=== PATIENT | female | born 1970 | race Caucasian/White ===

== ENCOUNTER 2017-01-17 15:34 | Inpatient (IN) | payer MEDICAID ==
[~2017-01-17] VITALS: Ht 170.2 cm; Wt 63.0 kg
[~2017-01-17 15:34] MED LIST: BUPR100T13 PO; DIVA500T7 PO; IBUP-1480 PO; SER100 PO
[2017-01-17 15:37] VITALS: BP_SYST 112
[2017-01-17] MEDS ORDERED: NACL 0.9% 1,000 ML IV ONE (17:51)
[2017-01-17] MEDS ORDERED: FOLIC ACID 1 MG, THIAMINE HCL 100 MG, MAGNESIUM SULFATE 1 GM, MVI 10 ML in NACL 0.9% 1,... IV ONE (18:00)
[2017-01-17] MEDS ORDERED: ONDANSETRON HCL 4 MG/2 ML VIAL IVP ONE ×2 (18:00→20:15)
[2017-01-17] MEDS ORDERED: MAGNESIUM SULFATE 1 GM/2 ML VIAL ONE (18:11)
[2017-01-17] MEDS ORDERED: FOLIC ACID 5 MG/ML VIAL IV ONE (18:11)
[2017-01-17] MEDS ORDERED: THIAMINE HCL 100 MG/ML VIAL ONE (18:11)
[2017-01-17] MEDS ORDERED: MVI 10 ML VIAL IV ONE (18:11)
[2017-01-17 18:23] LABS: BASOPHILS # (AUTO) 0.1 K/uL (0.0-0.2); BASOPHILS % (AUTO) 1.1 % (0.0-2.0); EOSINOPHILS % (AUTO) 0.1 % (0.0-4.0); HEMATOCRIT 39.3 % (36-48); HEMOGLOBIN 12.9 g/dL (12.0-16.0); LYMPHOCYTES # (AUTO) 1.4 K/uL (1.0-5.5); LYMPHOCYTES % (AUTO) 11.2 % (20.5-51.5); MEAN CORPUSCULAR HEMOGLOBIN 29 pg (27-31); MEAN CORPUSCULAR HGB CONC 33 % (32-36); MEAN CORPUSCULAR VOLUME 90 fL (79.0-98.0); MONOCYTES # (AUTO) 0.7 K/uL (0.0-1.0); MONOCYTES % (AUTO) 5.3 % (1.7-9.3); NEUTROPHILS # (AUTO) 10.1 K/uL (1.8-7.7); NEUTROPHILS % (AUTO) 82.3 % (40.0-70.0); PLATELET COUNT (AUTO) 443 K/uL (130-430); RED BLOOD CELL COUNT(AUTO) 4.39 MIL/uL (4.2-6.2); RED CELL DISTRIBUTION WIDTH 16.2 % (9.0-15.0); WHITE BLOOD COUNT (AUTO) 12.3 K/uL (4.8-10.8)
[2017-01-17 18:43] LABS: INR 1.1 (0.8-1.2); PROTHROMBIN TIME 11.5 SECS (9.5-12.5)
[2017-01-17 18:48] LABS: ANION GAP 15 (5-15); CALCIUM 9.8 mg/dL (8.4-11.0); CHLORIDE 100 mmol/L (98-107); CREATININE 0.77 mg/dL (0.55-1.30); GFR AFRICAN AMERICAN 105 mL/min (>90); GLUCOSE 119 mg/dL (70-99); POTASSIUM 3.4 mmol/L (3.5-5.1); SODIUM SERUM 139 mmol/L (136-145); UREA NITROGEN, BLOOD 6 mg/dL (8-21)
[2017-01-17 18:54] LABS: ALANINE AMINOTRANSFERASE 30 U/L (12-78); ALBUMIN 4.5 g/dL (3.4-4.8); AMYLASE 57 U/L (0-100); ASPARTATE AMINOTRANSFERASE 52 U/L (10-37); LIPASE 65 U/L (73-393)
[2017-01-17 18:58] LABS: ALCOHOL, BLOOD < 3 mg/dL (<10)
[2017-01-17] MEDS ORDERED: KETOROLAC TROMETHAMINE 30 MG VIAL IVP ONE (19:15)
[2017-01-17] MEDS ORDERED: LORazepam 2 MG/ML VIAL IVP ONE (20:15)
[2017-01-17] MEDS ORDERED: LORazepam 2 MG/ML VIAL (FOR ER USE) ONE (20:29)
[2017-01-17] MEDS ORDERED: MORPHINE 2 MG/ML INJ. SYRINGE IVP ONE (20:30)
[2017-01-17] MEDS ORDERED: PANTOPRAZOLE SODIUM 40 MG/VIAL (PROTONIX) IVP ONE (21:00)
[2017-01-17] MEDS ORDERED: METOCLOPRAMIDE HCL 10 MG/2 ML VIAL IVP ONE (21:00)
[2017-01-17] MEDS ORDERED: PANTOPRAZOLE SODIUM 80 MG in NS 100 ML IV ONE (22:30)
[2017-01-17] MEDS ORDERED: PANTOPRAZOLE SODIUM 40 MG in NS 50 ML IV ONE (22:30)
[2017-01-17 23:17] VITALS: BP_SYST 128
[2017-01-17] MEDS ORDERED: PANTOPRAZOLE SODIUM 40 MG/VIAL (PROTONIX) ONE ×2 (23:54)
[2017-01-18 00:03] LABS: BILIRUBIN,URINE NEGATIVE (NEGATIVE); BLOOD, URINE NEGATIVE (NEGATIVE); CLARITY/URINE CLEAR (CLEAR); COLOR,URINE YELLOW (YELLOW); GLUCOSE,URINE NEGATIVE (NEGATIVE); KETONES,URINE 3+ (NEGATIVE); LEUKOCYTE ESTERASE ,URINE NEGATIVE (NEGATIVE); NITRITE, URINE NEGATIVE (NEGATIVE); PH,URINE 7.5 (5.0-8.0); PROTEIN URINE 1+ (NEGATIVE)
[2017-01-18 00:11] LABS: BARBITURATE, URINE NEGATIVE (NEG <=200); BENZODIAZEPINE, URINE POSITIVE (NEG <=150); METHAMPHETAMINES SCREEN,URINE NEGATIVE (NEG <=500); URINE AMPHETAMINE NEGATIVE (NEG <=500); URINE METHADONE NEGATIVE (NEG <=200)
[2017-01-18 00:12] LABS: CANNABINOID, URINE NEGATIVE (NEG <=50); COCAINE, URINE NEGATIVE (NEG <=150); OPIATE, URINE POSITIVE (NEG <=100); PHENCYCLIDINE SCREEN,URINE NEGATIVE (NEG <=25); UR TRICYCLIC ANTIDEPRESSANTS NEGATIVE (NEG <=300); URINE OXYCODONE SCREEN NEGATIVE (NEG <=100); URINE PROPOXYPHENE SCREEN NEGATIVE (NEG <=300)
[2017-01-18 00:24] LABS: BACTERIA,URINE MODERATE /HPF (None Seen); RBC,URINE 0-3 /HPF (0-3); WBC,URINE 0-3 /HPF (0-3)
[2017-01-18] MEDS: ONDANSETRON HCL 4 MG/2 ML VIAL IVP PRN ×3 (00:54→09:35)
[2017-01-18] MEDS: LORazepam 2 MG/ML VIAL IVP PRN ×6 (00:55→22:16)
[2017-01-18] MEDS ORDERED: FOLIC ACID 5 MG/ML VIAL IV ONE (00:55)
[2017-01-18] MEDS ORDERED: THIAMINE HCL 100 MG/ML VIAL ONE (00:56)
[2017-01-18] MEDS ORDERED: MAGNESIUM SULFATE 1 GM/2 ML VIAL ONE (00:56)
[2017-01-18] MEDS ORDERED: MVI 10 ML VIAL IV ONE (00:57)
[2017-01-18] MEDS: FOLIC ACID 1 MG, THIAMINE HCL 100 MG, MAGNESIUM SULFATE 1 GM, MVI 10 ML in NACL 0.9% 1,... IV SCH ×3 (01:12→18:17)
[2017-01-18] MEDS ORDERED: PANTOPRAZOLE SODIUM 40 MG in NS 50 ML IV SCH (02:45)
[2017-01-18] MEDS ORDERED: PANTOPRAZOLE SODIUM 40 MG/VIAL (PROTONIX) ONE (03:05)
[2017-01-18 06:28] VITALS: BP_SYST 133
[2017-01-18 08:10] VITALS: BP_SYST 119
[2017-01-18] MEDS: PANTOPRAZOLE SODIUM 40 MG in NS 50 ML IV SCH ×4 (08:49→22:20)
[2017-01-18 11:30] LABS: BASOPHILS # (AUTO) 0.2 K/uL (0.0-0.2); BASOPHILS % (AUTO) 1.7 % (0.0-2.0); EOSINOPHILS # (AUTO) 0.1 K/uL (0.0-0.4); EOSINOPHILS % (AUTO) 0.7 % (0.0-4.0); HEMATOCRIT 30.1 % (36-48); HEMOGLOBIN 9.9 g/dL (12.0-16.0); LYMPHOCYTES # (AUTO) 1.9 K/uL (1.0-5.5); LYMPHOCYTES % (AUTO) 18.6 % (20.5-51.5); MEAN CORPUSCULAR HEMOGLOBIN 30 pg (27-31); MEAN CORPUSCULAR HGB CONC 33 % (32-36); MEAN CORPUSCULAR VOLUME 91 fL (79.0-98.0); MONOCYTES # (AUTO) 0.7 K/uL (0.0-1.0); MONOCYTES % (AUTO) 6.6 % (1.7-9.3); NEUTROPHILS # (AUTO) 7.1 K/uL (1.8-7.7); PLATELET COUNT (AUTO) 330 K/uL (130-430); RED BLOOD CELL COUNT(AUTO) 3.31 MIL/uL (4.2-6.2); RED CELL DISTRIBUTION WIDTH 16.1 % (9.0-15.0)
[2017-01-18 11:47] LABS: CALCIUM 8.5 mg/dL (8.4-11.0); CREATININE 0.7 mg/dL (0.55-1.30); POTASSIUM 3.5 mmol/L (3.5-5.1)
[2017-01-18 11:52] LABS: ALBUMIN 3.2 g/dL (3.4-4.8); TOTAL BILIRUBIN 1.2 mg/dL (0.0-1.0)
[2017-01-18 12:18] VITALS: BP_SYST 133
[2017-01-18 12:43] LABS: NEUTROPHILS % (AUTO) 72.4 % (40.0-70.0)
[2017-01-18] MEDS: MORPHINE 4 MG/ML INJ. SYRINGE IVP PRN ×3 (12:55→21:14)
[2017-01-18 16:23] VITALS: BP_SYST 136
[2017-01-18 19:00] VITALS: BP_SYST 136
[2017-01-18 20:00] VITALS: BP_SYST 136
[2017-01-19 00:50] VITALS: BP_SYST 149
[2017-01-19] MEDS: MORPHINE 4 MG/ML INJ. SYRINGE IVP PRN ×5 (01:16→21:16)
[2017-01-19] MEDS: LORazepam 2 MG/ML VIAL IVP PRN ×4 (04:19→21:15)
[2017-01-19] MEDS: PANTOPRAZOLE SODIUM 40 MG in NS 50 ML IV SCH ×5 (04:23→23:45)
[2017-01-19] MEDS: FOLIC ACID 1 MG, THIAMINE HCL 100 MG, MAGNESIUM SULFATE 1 GM, MVI 10 ML in NACL 0.9% 1,... IV SCH ×2 (04:24→15:47)
[2017-01-19 06:02] VITALS: BP_SYST 130
[2017-01-19 06:48] LABS: BASOPHILS % (AUTO) 0.4 % (0.0-2.0); EOSINOPHILS # (AUTO) 0.3 K/uL (0.0-0.4); EOSINOPHILS % (AUTO) 3.9 % (0.0-4.0); HEMATOCRIT 27.2 % (36-48); HEMOGLOBIN 9.2 g/dL (12.0-16.0); LYMPHOCYTES # (AUTO) 2.2 K/uL (1.0-5.5); MEAN CORPUSCULAR HEMOGLOBIN 31 pg (27-31); MEAN CORPUSCULAR HGB CONC 34 % (32-36); MEAN CORPUSCULAR VOLUME 91 fL (79.0-98.0); MONOCYTES # (AUTO) 0.6 K/uL (0.0-1.0); MONOCYTES % (AUTO) 8.1 % (1.7-9.3); NEUTROPHILS # (AUTO) 4.4 K/uL (1.8-7.7); NEUTROPHILS % (AUTO) 58.6 % (40.0-70.0); PLATELET COUNT (AUTO) 271 K/uL (130-430); RED BLOOD CELL COUNT(AUTO) 3.01 MIL/uL (4.2-6.2); RED CELL DISTRIBUTION WIDTH 16.3 % (9.0-15.0); WHITE BLOOD COUNT (AUTO) 7.6 K/uL (4.8-10.8)
[2017-01-19 07:04] LABS: CALCIUM 8.4 mg/dL (8.4-11.0); CREATININE 0.65 mg/dL (0.55-1.30); POTASSIUM 3.3 mmol/L (3.5-5.1); TOTAL BILIRUBIN 0.5 mg/dL (0.0-1.0)
[2017-01-19 08:00] VITALS: BP_SYST 131
[2017-01-19] MEDS ORDERED: PANTOPRAZOLE SODIUM 40 MG/VIAL (PROTONIX) ONE ×2 (09:27→15:53)
[2017-01-19 11:31] VITALS: BP_SYST 132
[2017-01-19] MEDS ORDERED: SIMETHICONE 40 MG/0.6 ML ML ONE (13:08)
[2017-01-19] MEDS ORDERED: MIDAZOLAM HCL 5 MG/5 ML VIAL ONE (13:09)
[2017-01-19] MEDS: fentaNYL CITRATE/PF 100 MCG/2 ML AMP ONE ×3 (13:50→13:59)
[2017-01-19] MEDS: MIDAZOLAM HCL 5 MG/5 ML VIAL ONE ×4 (13:50→14:03)
[2017-01-19] MEDS ORDERED: DIPHENHYDRAMINE INJ 50 MG/ML VIAL ONE (14:32)
[2017-01-19 16:23] VITALS: BP_SYST 122
[2017-01-19 21:00] VITALS: BP_SYST 110
[2017-01-19] MEDS ORDERED: POTASSIUM CHLORIDE 20 MEQ TAB.PRT.SR PO ONE (21:00)
[2017-01-20 00:24] VITALS: BP_SYST 117
[2017-01-20] MEDS: LORazepam 2 MG/ML VIAL IVP PRN ×3 (01:17→09:42)
[2017-01-20] MEDS: MORPHINE 4 MG/ML INJ. SYRINGE IVP PRN ×3 (01:19→09:43)
[2017-01-20] MEDS: FOLIC ACID 1 MG, THIAMINE HCL 100 MG, MAGNESIUM SULFATE 1 GM, MVI 10 ML in NACL 0.9% 1,... IV SCH (01:20)
[2017-01-20 03:58] VITALS: BP_SYST 126
[2017-01-20] MEDS: PANTOPRAZOLE SODIUM 40 MG in NS 50 ML IV SCH ×2 (04:49→09:44)
[2017-01-20 06:33] LABS: BASOPHILS # (AUTO) 0.1 K/uL (0.0-0.2); EOSINOPHILS # (AUTO) 0.3 K/uL (0.0-0.4); HEMOGLOBIN 9.2 g/dL (12.0-16.0); MEAN CORPUSCULAR VOLUME 92 fL (79.0-98.0); MONOCYTES # (AUTO) 0.6 K/uL (0.0-1.0)
[2017-01-20 06:45] LABS: BASOPHILS % (AUTO) 0.9 % (0.0-2.0); EOSINOPHILS % (AUTO) 3.4 % (0.0-4.0); HEMATOCRIT 28.6 % (36-48); LYMPHOCYTES # (AUTO) 2.4 K/uL (1.0-5.5); LYMPHOCYTES % (AUTO) 26.3 % (20.5-51.5); MEAN CORPUSCULAR HEMOGLOBIN 30 pg (27-31); MEAN CORPUSCULAR HGB CONC 32 % (32-36); MONOCYTES % (AUTO) 6.6 % (1.7-9.3); NEUTROPHILS # (AUTO) 5.6 K/uL (1.8-7.7); NEUTROPHILS % (AUTO) 62.8 % (40.0-70.0); PLATELET COUNT (AUTO) 263 K/uL (130-430); RED CELL DISTRIBUTION WIDTH 16.5 % (9.0-15.0)
[2017-01-20 06:58] LABS: ALBUMIN 3.3 g/dL (3.4-4.8); CALCIUM 8.6 mg/dL (8.4-11.0); CREATININE 0.67 mg/dL (0.55-1.30); POTASSIUM 3.5 mmol/L (3.5-5.1); TOTAL BILIRUBIN 0.5 mg/dL (0.0-1.0)
[2017-01-20 07:09] LABS: TOTAL IRON BIND. CAPACITY 244 ug/dL (250-450)
[2017-01-20 09:28] VITALS: BP_SYST 123
[2017-01-20] MEDS ORDERED: SOD FERRIC GLUC COMPLEX/SUC 125 MG in NS 100 ML IV SCH (11:00)
[2017-01-20 11:08] VITALS: BP_SYST 125
[2017-01-20] MEDS ORDERED: PRO40 PO (11:42)
[2017-01-20 12:44] VITALS: BP_SYST 120
== END 2017-01-20 12:45 | disposition home or self-care (01) | DRG 241 ==
LOC: SED 15:34 → STU 22:25 → SMU 01-18 13:56
PROVIDERS: ADMIT Internal Medicine; ATTEND Internal Medicine
PROC: 0DJ08ZZ Inspection of Upper Intestinal Tract, Via Natural or Artificial Opening Endoscopic (ICD-10-PCS; principal; 2017-01-19 09:00)
DX: K29.21 Alcoholic gastritis with bleeding (principal); D62 Acute posthemorrhagic anemia; K92.0 Hematemesis; M41.9 Scoliosis, unspecified; E86.0 Dehydration; Y90.0 Blood alcohol level of less than 20 mg/100 ml; F10.239 Alcohol dependence with withdrawal, unspecified; F32.9 Major depressive disorder, single episode, unspecified; F41.9 Anxiety disorder, unspecified; Z98.51 Tubal ligation status
CPT/HCPCS: 36415; 43235; 80053; 80307; 81000-TC; 82150-TC; 83540-TC; 83550-TC; 83605; 83690-TC; 83735-TC; 84703; 85025; 85610-TC; 85730-TC; 87086; 96365; 96375; 96376; 99285; C9113; G0482; J1200; J1885; J2060; J2250; J2270; J2405; J2765; J2916; J3010; J3411; J3475; J3490; J7030

== ENCOUNTER 2018-07-19 11:56 | Emergency (ER) | payer OTHER, MEDICAID ==
[~2018-07-19] VITALS: Ht 170.2 cm; Wt 71.7 kg
[~2018-07-19 11:56] MED LIST changes: -BUPR100T13 PO; -DIVA500T7 PO; +FAMO40TA7 PO; -IBUP-1480 PO; +LORA-259 PO; +PRO40 PO; -SER100 PO
[2018-07-19 12:11] VITALS: BP_SYST 151
[2018-07-19] MEDS ORDERED: KETOROLAC TROMETHAMINE 60 MG/2 ML VIAL IM ONE (13:00)
[2018-07-19 13:28] VITALS: BP_SYST 151
[2018-07-19 13:31] LABS: BARBITURATE, URINE NEGATIVE (NEG <=200); BENZODIAZEPINE, URINE NEGATIVE (NEG <=150); CANNABINOID, URINE NEGATIVE (NEG <=50); COCAINE, URINE NEGATIVE (NEG <=150); METHAMPHETAMINES SCREEN,URINE NEGATIVE (NEG <=500); OPIATE, URINE NEGATIVE (NEG <=100); PHENCYCLIDINE SCREEN,URINE NEGATIVE (NEG <=25); UR TRICYCLIC ANTIDEPRESSANTS POSITIVE (NEG <=300); URINE AMPHETAMINE NEGATIVE (NEG <=500); URINE METHADONE NEGATIVE (NEG <=200); URINE OXYCODONE SCREEN NEGATIVE (NEG <=100); URINE PROPOXYPHENE SCREEN NEGATIVE (NEG <=300)
== END 2018-07-19 13:28 | disposition home or self-care (01) ==
LOC: SED 11:56
DX: M19.012 Primary osteoarthritis, left shoulder (principal); K21.9 Gastro-esophageal reflux disease without esophagitis; F41.9 Anxiety disorder, unspecified; G43.909 Migraine, unspecified, not intractable, without status migrainosus; Z79.899 Other long term (current) drug therapy; Z98.51 Tubal ligation status
CPT/HCPCS: 80307; 96372; 99283; J1885